=== PATIENT | female | born 1980 | race Hispanic/Latino ===

== ENCOUNTER 2016-10-28 08:43 | Emergency (ER) | payer MEDICAID ==
[~2016-10-28 08:43] MED LIST: AMLO10TA3 PO; ATEN25TA PO; CALC667T5 PO; CINA90TA PO; FERR-83 PO; PANT40TA3 PO
[2016-10-28 08:45] VITALS: BP 131/85; PULSE 62; RESP 20; O2SAT 100
[2016-10-28 09:50] LABS: BASOPHILS % (AUTO) 0.6 % (0-3); EOSINOPHILS % (AUTO) 0.8 % (0-5); MONOCYTES % (AUTO) 6.7 % (4-12); Mean Corpuscular Hemoglobin 30.1 pg (27.0-35.0); NEUTROPHILS % (AUTO) 75.6 % (40-74); Platelet Count 218 bil/L (150-400)
--- NOTE | 2016-10-28 10:23 | ED.REPORT ---
HPI-General Illness Date of Service Oct 28, 2016 ED Provider: Karl Oneill DO Patient is a 36 year old female who presents to the ED complaining of low calcium levels. She gets her calcium level checked regularly because she is on dialysis. Associated symptoms include feeling flushed. She denies numbness, muscle spasms, or any other symptoms. She has had similar symptoms before. She takes calcium supplements and reports she received 3 g of IV calcium this morning following dialysis. Nursing Notes Stated Complaint: CALCIUM LEVEL LOW Chief Complaint: General Complaint Nursing Notes Reviewed: Yes Allergies: Coded Allergies: iron (Verified Allergy, Severe, Anaphylaxis, 10/28/16) PT CURRENTLY TAKING DRUG TAPE (Verified Allergy, Unknown, UNKNOWN, 10/28/16) vancomycin (Verified Allergy, Unknown, UNKNOWN, 10/28/16) Scheduled Amlodipine (Amlodipine) 10 Mg Tablet 10 MG PO DAILY Atenolol (Atenolol) 25 Mg Tablet 25 MG PO DAILY Calcium Acetate (Calcium Acetate) 667 Mg Tablet 3 TAB PO TID Cinacalcet HCl (Sensipar) 90 Mg Tablet 90 MG PO DAILY Ferrous Sulfate (Ferrous Sulfate) 325 Mg Tablet 325 MG PO DAILY Pantoprazole DR (Pantoprazole DR) 40 Mg Tablet.dr 40 MG PO DAILY General Time Seen by MD: 10:20 Chief Complaint Other (Low Calcium) 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 High Past Medical History Kidney failure with dialysis since approximately 2007 Pneumonia Polycystic ovaries hyperparathyroidism Reports: Hypertension Past Surgical History Hernia repair Parathyroid gland removal Fistula Family History Renal disease Smoking History Former Smoker Social History Patient has dialysis Friday, Friday and Friday Alcohol Use: Denies alcohol use Drug Use: Denies drug use Other Social History: Good social support Ambulatory Status Independent Review of Systems + flushed Full Review of Systems Constitutional: Denies: Chills, Fever Neurologic: Denies: Numbness Complete sys rev & neg: except as marked. Physical Exam Vital Signs Vital Signs Date Time Temp Pulse Resp B/P Pulse Ox O2 Delivery O2 Flow Rate FiO2 10/28/16 11:20 59 18 123/72 97 Room Air 10/28/16 08:45 36.3 62 20 131/85 100 Room Air Initial VS: Reviewed Head / Eyes: Atraumatic, Normocephalic Neck: Full range of motion Respiratory: No respiratory distress Extremities: No swelling Skin: Warm, Dry Neurologic: Alert, Oriented, Nonfocal Psychiatric: Mood/affect normal, Behavior normal, Normal thought content General/Constitutional: Awake, Alert, Well developed No clonus. Interpretation & Diagnostics Lab Results Interpretation Result Diagram: 10/28/16 0908 10/28/16 0908 Test 10/28/16 09:08 White Blood Count 5.0th/mm3 (3.8-10.1) Red Blood Count 4.22mil/mm3 (3.90-5.20) Hemoglobin 12.7g/dL (12.0-15.6) Hematocrit 38.0% (35.0-46.0) Mean Corpuscular Volume 90.0fL (81-100) Mean Corpuscular Hemoglobin 30.1pg (27.0-35.0) Mean Corpuscular Hemoglobin Concent 33.4% (32.0-37.0) Red Cell Distribution Width 14.0% (12.3-15.4) Platelet Count 218bil/L (150-400) Neutrophils (%) (Auto) 75.6% (40-74) Lymphocytes (%) (Auto) 16.1% (14-46) Monocytes (%) (Auto) 6.7% (4-12) Eosinophils (%) (Auto) 0.8% (0-5) Basophils (%) (Auto) 0.6% (0-3) Sodium Level 134mEq/L (134-144) Potassium Level 3.8mEq/L (3.5-5.2) Chloride Level 89mEq/L (97-108) Carbon Dioxide Level 31mmol/L (18-29) Blood Urea Nitrogen 46mg/dL (6-20) Creatinine 5.92mg/dL (0.57-1.00) Estimat Glomerular Filtration Rate 11mL/min (>59) Glucose Level 147mg/dL (60-99) Calcium Level 7.9mg/dL (8.5-10.1) Total Bilirubin 0.3mg/dL (0.0-1.2) Aspartate Amino Transf (AST/SGOT) 17U/L (0-50) Alanine Aminotransferase (ALT/SGPT) 7U/L (0-32) Alkaline Phosphatase 252U/L (25-150) Total Protein 8.4g/dL (6.4-8.4) Albumin 4.2g/dL (3.4-5.0) Hold Shook Top Tube Received (Received) Re-Eval/Medical Decision Med Decision/Clinical Course Reportedly patient had more profound hypocalcemia prior to arrival but now she is asymptomatic. The case is discussed with nephrology who agrees that patient is stable for discharge. Once again reinforced close follow-up and proper medication dosing. Return precautions given. Time of Eval: 11:06 Re-Evaluation/Progress Note: Discussed plan for discharge with close follow up. Patient understands and agrees with plan. All questions addressed at this time. Consultation : Referral / Consult Name: Anjum Kaplan MD Consulted With: Nephrology Call Returned at: 10:46 Swatch Folder: Agrees with eval, Agrees with plan Note: Discussed patient's case with captain fire prevention bureau interior design project manager for Dr. High. He suggests discharge with followup and increasing her dose of calcium. Counseled Regarding: Diagnosis, Lab results, Need for follow-up, When/why to return to ED Discharge & Departure Primary Impression: Hypocalcemia Disposition: Home Discharge Condition All VS Reviewed: Yes Condition: Stable Additional Instructions: Be sure to take your calcium 80 mL 4 times a day. Follow-up with your interior design project manager as planned. Return to the ER as needed for worsening symptoms. Referrals: Eliz Brown PA-C (PCP) Scribe Attestation Portions of this note were transcribed by Sly Garcia. I, Dr. Oneill personally performed the history, physical exam and medical decision-making; I reviewed and confirmed the accuracy of the information in the transcribed note. Signed by: Sly Garcia 10/28/16, 1130 copies to: Eliz Brown PA-C, Timothy S DO Oct 28, 2016 10:23 SLY GRACIA Oct 28, 2016 10:24
[2016-10-28 11:20] VITALS: BP 123/72; PULSE 59; RESP 18; O2SAT 97
== END 2016-10-28 11:19 | disposition home or self-care (01) ==
LOC: SED 08:43
DX: E83.51 Hypocalcemia (principal); I12.9 Hypertensive chronic kidney disease with stage 1 through stage 4 chronic kidney disease, or unspecified chronic kidney disease; N19 Unspecified kidney failure; Z99.2 Dependence on renal dialysis; Z87.891 Personal history of nicotine dependence; Z88.1 Allergy status to other antibiotic agents; Z88.8 Allergy status to other drugs, medicaments and biological substances

== ENCOUNTER 2017-03-07 00:24 | Emergency (ER) | payer MEDICAID ==
[~2017-03-07] VITALS: Ht 148.6 cm; Wt 56.4 kg
[2017-03-07 00:30] VITALS: BP 140/74; PULSE 89; RESP 16; O2SAT 98
[2017-03-07 00:57] LABS: BASOPHILS % (AUTO) 0.3 % (0-3); EOSINOPHILS % (AUTO) 3.2 % (0-5); MONOCYTES % (AUTO) 11.5 % (4-12); Mean Corpuscular Hemoglobin 30.6 pg (27.0-35.0); Mean Corpuscular Volume 91.3 fL (81-100); NEUTROPHILS % (AUTO) 54.8 % (40-74); Platelet Count 204 bil/L (150-400)
--- NOTE | 2017-03-07 01:41 | ED.REPORT ---
HPI-Chest Pain Under 40 Date of Service March 07, 2017 ED Provider: Domenico Sandoval MD A 36 year old female with a history of renal failure on dialysis, hypertension and pneumonia presents to the ED complaining of chest pain. The pt woke one hour ago with chest pressure, shortness of breath and a headache that lasted for ten minutes, though she denies diaphoresis, productive cough, or shortness of breath with exertion. The pt has never experienced similar symptoms before. She was last dialyzed today and has been experiencing some minimal heartburn recently. Nursing Notes Stated Complaint: COUGH Chief Complaint: Chest Pain Nursing Notes Reviewed: Yes Allergies: Coded Allergies: iron (Verified Allergy, Severe, Anaphylaxis, 03/07/17) PT CURRENTLY TAKING DRUG TAPE (Verified Allergy, Unknown, UNKNOWN, 03/07/17) vancomycin (Verified Allergy, Unknown, UNKNOWN, 03/07/17) Scheduled Amlodipine (Amlodipine) 10 Mg Tablet 10 MG PO DAILY Atenolol (Atenolol) 25 Mg Tablet 25 MG PO DAILY Calcium Acetate (Calcium Acetate) 667 Mg Tablet 3 TAB PO TID Cinacalcet HCl (Sensipar) 90 Mg Tablet 90 MG PO DAILY Ferrous Sulfate (Ferrous Sulfate) 325 Mg Tablet 325 MG PO DAILY Pantoprazole DR (Pantoprazole DR) 40 Mg Tablet.dr 40 MG PO DAILY General Time Seen by MD: 00:54 Chief Complaint Chest pain Hx Obtained From: Patient Arrived By: Walk-in Sudden in Onset?: Yes Onset Occurred: 1 - 4 hours ago Symptom Duration: 1 - 15 minutes Recent Healthcare: Recent doctor visit, Recent hospitalization Similar Sx Previous: No Past Medical History Past Medical History Notes: Business Communications Instructor is Dr. High Past Medical History Kidney failure with dialysis since approximately 2007 Pneumonia Polycystic ovaries hyperparathyroidism Reports: Hypertension Past Surgical History Hernia repair Parathyroid gland removal Fistula Family History Renal disease Smoking History Former Smoker Social History Patient has dialysis Friday, Friday and Friday Alcohol Use: Denies alcohol use Drug Use: Denies drug use Other Social History: Good social support Ambulatory Status Independent Review of Systems Respiratory: Reports: Non-productive cough, Shortness of breath, Denies: Prod cough, clear Cardiovascular: Reports: Chest pain GI: Denies: Nausea, Vomiting Skin: Denies Diaphoresis, Denies Rash Neurologic: Reports: Headache Complete sys rev & neg: except as marked. Physical Exam Initial Vital Signs Vital Signs (First) Date Time Temp Pulse Resp B/P Pulse Ox O2 Delivery O2 Flow Rate FiO2 03/07/17 00:30 36.3 89 16 140/74 98 Room Air Initial VS: Reviewed General/Constitutional: Awake, Alert Respiratory / Chest: Atraumatic, Breath sounds NL, Breath sounds = bilat, No respiratory distress, No rales Cardiovascular: Heart rate NL, Regular rhythm, Heart sounds NL no peripheral edema Neck: Atraumatic, Supple, Full range of motion Abdomen: Atraumatic, Soft, Non-tender Back: Atraumatic, Full range of motion Lower Extremity / Pelvis / MS: Atraumatic, Full range of motion Skin: Atraumatic, Color NL, No rash, Warm, Dry Neurologic: Oriented X3, Speech NL, No motor deficits, No sensory deficits Psychiatric: Affect NL, Mood NL Head / Eyes: Atraumatic, Normocephalic, PERRL, EOMI ENT: Atraumatic, Airway patent, Mucous membranes moist Upper Extremity / MS: Atraumatic, Full range of motion Interpretation & Diagnostics Lab Results Interpretation Result Diagram: 03/07/17 0050 03/07/17 0050 Test 03/07/17 00:50 03/07/17 03:30 White Blood Count 6.3th/mm3 (3.8-10.1) Red Blood Count 3.56mil/mm3 (3.90-5.20) Hemoglobin 10.9g/dL (12.0-15.6) Hematocrit 32.5% (35.0-46.0) Mean Corpuscular Volume 91.3fL (81-100) Mean Corpuscular Hemoglobin 30.6pg (27.0-35.0) Mean Corpuscular Hemoglobin Concent 33.5% (32.0-37.0) Red Cell Distribution Width 12.9% (12.3-15.4) Platelet Count 204bil/L (150-400) Neutrophils (%) (Auto) 54.8% (40-74) Lymphocytes (%) (Auto) 30.0% (14-46) Monocytes (%) (Auto) 11.5% (4-12) Eosinophils (%) (Auto) 3.2% (0-5) Basophils (%) (Auto) 0.3% (0-3) Sodium Level 135mEq/L (134-144) Potassium Level 4.9mEq/L (3.5-5.2) Chloride Level 84mEq/L (97-108) Carbon Dioxide Level 28mmol/L (18-29) Blood Urea Nitrogen 59mg/dL (6-20) Creatinine 9.91mg/dL (0.57-1.00) Estimat Glomerular Filtration Rate 6mL/min (>59) Glucose Level 114mg/dL (60-99) Calcium Level 9.4mg/dL (8.5-10.1) Magnesium Level 2.6mg/dL (1.6-2.6) Total Bilirubin 0.2mg/dL (0.0-1.2) Aspartate Amino Transf (AST/SGOT) 16U/L (0-50) Alanine Aminotransferase (ALT/SGPT) 10U/L (0-32) Alkaline Phosphatase 59U/L (25-150) Total Protein 7.5g/dL (6.4-8.4) Albumin 4.3g/dL (3.4-5.0) Troponin T 0.010ug/L (0.0-0.011) ECG Interpretation ECG Interpretation: normal sinus rhythm with a rate of 78 incomplete RBBB, new compared to previous dated 04/25/2015 nonspecific STT wave changes Time: 00:48 Interpreted by: ED physician ECG Interpretation: normal sinus rhythm with a rate of 72 no change in STT waves Time: 03:03 Interpreted by: ED physician X-Ray Chest Interpretation Chest Xray Interpretation: cardiomegaly and fluid overload no infiltrate Interpretation / Wet Read by: Wet read ED physician Re-Eval/Medical Decision Med Decision/Clinical Course 36-year-old presents with a brief episode of chest pain without any associated cardiovascular symptoms. She has a history of heartburn and is on Protonix. She acknowledges heartburn additionally despite her therapy. Enzymes are negative 2 and EKG is nonacute. She is discharged in stable condition for follow-up with PCP. Continue Protonix. Stress testing needs to be accomplished ultimately. Source of Hx: Old records Re-Evaluation/Progress : Time of Eval: 04:39 Patient Status: Condition improved Re-Evaluation/Progress Note: Pt rechecked, who is feeling well. The diagnosis and plan for discharge are discussed. The pt understands and agrees with the plan. All questions are addressed at this time. Counseled Regarding: Diagnosis, Lab results, Need for follow-up, When/why to return to ED Discharge & Departure Primary Impression: Non-cardiac chest pain Additional Impression: Chronic renal failure Disposition: Home Discharge Condition All VS Reviewed: Yes Condition: Stable Patient Instructions: Chest Pain (ED), Esophageal Spasm (ED) Additional Instructions: We do not find any evidence of cardiac trouble associated with this pain. I suspect it was esophageal spasm and not angina. Continue pantoprazole one tablet daily. Follow-up with your doctor in the office. Keep your dialysis appointments as scheduled. Return promptly if you become short of breath, experienced prolonged pain, or any other new symptoms of concern. No encontramos ninguna evidencia de problemas cardacos asociados con juan dolor. Sospecho que era espasmo esofgico y no angina. Continuar con pantoprazol rober tableta al da. Seguimiento con eden mdico en la oficina. Mantenga chayito citas de dilisis segn lo programado. Vuelva pronto si usted tiene dificultad para respirar, dolor prolongado experimentado, o cualquier otro nuevo sntomas de preocupacin. Referrals: Eliz Brown PA-C (PCP) Scribe Attestation Portions of this note were transcribed by Amol Carroll. I, Dr. Sandoval personally performed the history, physical exam and medical decision-making; I reviewed and confirmed the accuracy of the information in the transcribed note. Signed by: Andres Diaz, 03/07/17 and 7249. copies to: Eliz Brown PA-C, Christopher W MD March 07, 2017 01:41 AMOL CARROLL March 07, 2017 01:56
[2017-03-07 01:46] LABS: Magnesium 2.6 mg/dL (1.6-2.6); TROPONIN T 0.01 ug/L (0.0-0.011)
[2017-03-07 04:00] VITALS: PULSE 87; RESP 16; O2SAT 94
[2017-03-07] MEDS ORDERED: Pantoprazole 4 mg/mL 10 mL Inj IVPUSH ONE (04:20)
[2017-03-07 04:48] VITALS: BP 138/69; PULSE 78; RESP 16; O2SAT 97
--- NOTE | 2017-03-07 08:13 | DRSVH ---
PROCEDURE: X-RAY CHEST, TWO VIEWS ([id number]) INDICATIONS: shortness of breath , chest pain TECHNIQUE: 2 views of the chest were acquired. COMPARISON: [facility], , CHEST 2VW, 03/13/2015, 3:27. FINDINGS: Surgical changes and devices: None. Lungs and pleura: No pleural effusions or pneumothorax. Diffuse interstitial opacities are grossly u nchanged no definite focal consolidation. Mediastinum: Mediastinal contours are normal. Heart size is normal. Bones and chest wall: No suspicious bony abnormalities. Soft tissues appear unremarkable. IMPRESSION: No acute disease. Severe interstitial changes, with stable appearance since 03/13/15. Dictated by: Andrew Harkins M.D. on 03/07/2017 at 8:11 Approved by: Andrew Harkins M.D. on 03/07/2017 at 8:12
== END 2017-03-07 04:49 | disposition home or self-care (01) ==
LOC: SED 00:24
DX: R07.89 Other chest pain (principal); N18.9 Chronic kidney disease, unspecified; R51 Headache; Z99.2 Dependence on renal dialysis; I12.9 Hypertensive chronic kidney disease with stage 1 through stage 4 chronic kidney disease, or unspecified chronic kidney disease; E21.3 Hyperparathyroidism, unspecified; Z87.891 Personal history of nicotine dependence; Z88.1 Allergy status to other antibiotic agents; Z88.8 Allergy status to other drugs, medicaments and biological substances

== ENCOUNTER 2017-04-14 02:46 | Observation (INO) | payer MEDICAID ==
[2017-04-14] VITALS (9 sets, daily range): BP systolic 143–212; BP diastolic 65–132; PULSE 56–66; RESP 12–24; O2SAT 93–100
[~2017-04-14] VITALS: Ht 142.2 cm; Wt 54.4 kg
[2017-04-14] MEDS ORDERED: HYDROmorphone 0.5 mg/0.5 mL iSecure Syringe IVPUSH PRN (03:15)
[2017-04-14 03:35] LABS: BASOPHILS % (AUTO) 0.3 % (0-3); EOSINOPHILS % (AUTO) 1.9 % (0-5); MONOCYTES % (AUTO) 11.2 % (4-12); Mean Corpuscular Hemoglobin 30.9 pg (27.0-35.0); Mean Corpuscular Volume 92.6 fL (81-100); NEUTROPHILS % (AUTO) 52.1 % (40-74); Platelet Count 166 bil/L (150-400)
[2017-04-14 04:07] LABS: TROPONIN T 0.01 ug/L (0.0-0.011)
--- NOTE | 2017-04-14 04:19 | ED.REPORT ---
HPI-General Illness Date of Service Apr 14, 2017 ED Provider: Isaac Helton MD 36 y/o female with a hx of renal failure on dialysis, hypertension and pneumonia presents to the ED complaining of "bone pain", onset an hour ago. The pt states, through an clinical information systems director, she has been in pain for the last two days but it got significantly worse today. She denies fever and taking any pain medications. The pt has never had similar sx before. She believes she may have high phosphorus level. Nursing Notes Stated Complaint: ABDOMINAL PAIN Chief Complaint: Chest Pain Nursing Notes Reviewed: Yes Allergies: Coded Allergies: iron (Verified Allergy, Severe, Anaphylaxis, 04/14/17) PT CURRENTLY TAKING DRUG TAPE (Verified Allergy, Unknown, UNKNOWN, 04/14/17) vancomycin (Verified Allergy, Unknown, UNKNOWN, 04/14/17) Scheduled Amlodipine (Amlodipine) 10 Mg Tablet 10 MG PO DAILY Atenolol (Atenolol) 25 Mg Tablet 25 MG PO DAILY Calcium Acetate (Calcium Acetate) 667 Mg Tablet 3 TAB PO TID Cinacalcet HCl (Sensipar) 90 Mg Tablet 90 MG PO DAILY Ferrous Sulfate (Ferrous Sulfate) 325 Mg Tablet 325 MG PO DAILY Pantoprazole DR (Pantoprazole DR) 40 Mg Tablet.dr 40 MG PO DAILY General Time Seen by MD: 02:59 Chief Complaint Other (bone pain) Hx Obtained From: 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 Physical Exam Vital Signs Vital Signs Date Time Temp Pulse Resp B/P Pulse Ox O2 Delivery O2 Flow Rate FiO2 04/14/17 04:18 61 12 174/65 93 Room Air 04/14/17 02:56 36.7 59 18 212/132 100 Room Air Initial VS: Reviewed, Vital signs abnormal Head / Eyes: Atraumatic, Normocephalic Neck: Supple, Non-tender, Full range of motion Respiratory: No respiratory distress Cardiovascular: Regular rate & rhythm Extremities: Vascular intact, Neuro intact, No swelling Skin: Warm, Dry, No cyanosis Neurologic: Alert, Oriented, Nonfocal General/Constitutional: Awake, Alert Distress / Hydration: Positive: Distress moderate Pt is pacing and complaining of back pain Interpretation & Diagnostics Lab Results Interpretation Result Diagram: 04/14/17 0326 04/14/17 0326 Test 04/14/17 03:26 White Blood Count 7.8th/mm3 (3.8-10.1) Red Blood Count 3.76mil/mm3 (3.90-5.20) Hemoglobin 11.6g/dL (12.0-15.6) Hematocrit 34.8% (35.0-46.0) Mean Corpuscular Volume 92.6fL (81-100) Mean Corpuscular Hemoglobin 30.9pg (27.0-35.0) Mean Corpuscular Hemoglobin Concent 33.3% (32.0-37.0) Red Cell Distribution Width 12.4% (12.3-15.4) Platelet Count 166bil/L (150-400) Neutrophils (%) (Auto) 52.1% (40-74) Lymphocytes (%) (Auto) 34.4% (14-46) Monocytes (%) (Auto) 11.2% (4-12) Eosinophils (%) (Auto) 1.9% (0-5) Basophils (%) (Auto) 0.3% (0-3) Sodium Level 137mEq/L (134-144) Potassium Level 5.6mEq/L (3.5-5.2) Chloride Level 87mEq/L (97-108) Carbon Dioxide Level 23mmol/L (18-29) Blood Urea Nitrogen 90mg/dL (6-20) Creatinine 14.52mg/dL (0.57-1.00) Estimat Glomerular Filtration Rate 4mL/min (>59) Glucose Level 115mg/dL (60-99) Calcium Level 15.8mg/dL (8.5-10.1) Phosphorus Level 7.5mg/dL (2.5-4.9) Magnesium Level 3.0mg/dL (1.6-2.6) Total Bilirubin 0.4mg/dL (0.0-1.2) Aspartate Amino Transf (AST/SGOT) 27U/L (0-50) Alanine Aminotransferase (ALT/SGPT) 28U/L (0-32) Alkaline Phosphatase 63U/L (25-150) Troponin T 0.010ug/L (0.0-0.011) Total Protein 7.4g/dL (6.4-8.4) Albumin 4.1g/dL (3.4-5.0) Hold Shook Top Tube Received (Received) Lab Results Interpretation: Chronic kidney injury, hypercalcemia, hyperphosphatemia, hypermagnesemia, hyperkalemia ECG Interpretation ECG Interpretation: Normal sinus rhythm. Rate 60. Probable LVH with secondary repol abdnrm Anterior ST elevation, probably due to LVH Time: 02:57 Interpreted by: ED physician X-Ray Chest Interpretation Chest Xray Interpretation: Result: Normal View: Portable, 1 view Interpretation / Wet Read by: Wet read ED physician Re-Eval/Medical Decision Med Decision/Clinical Course 36-year-old who presents with bone pain. She is found to have severe hyperkalemia and hyperphosphatemia. Her case was discussed with Dr. Fatima and Dr. Phan. She will be admitted to the hospitalist service and will receive urgent dialysis this morning. Source of Hx: Old records Consultation #1: Referral / Consult Name: Jesus Turner MD Consulted With: Nephrology Call Returned at: 04:39 Launching Pad Mechanic: Will see patient, Agrees with eval Consultation #2: Referral / Consult Name: Dianne Phan DO Consulted With: Hospitalist Call Returned at: 05:12 Launching Pad Mechanic: Will see patient, Agrees with eval, Agrees with plan, Accepts admit Counseled Regarding: Diagnosis, Lab results, Need for admission Discharge & Departure Primary Impression: Hypokalemia Additional Impressions: Hyperphosphatemia Hypermagnesemia Dialysis patient Disposition: ADMITTED TO HOSPITAL Discharge Condition All VS Reviewed: Yes Referrals: [facility] (PCP) Scribe Attestation Portions of this note were transcribed by Maulik Casanova. Dr.Leibrand Sophia, personally performed the history, physical exam and medical decision- making;I reviewed and confirmed the accuracy of the information in the transcribed note. Signed by Andres Conte. 04/14/17 05:36 copies to: [facility] Isaac Helton MD Apr 14, 2017 04:19 Maulik Casanova Apr 14, 2017 04:33
[2017-04-14] MEDS ORDERED: Ondansetron 2 mg/mL 2 mL Inj IVPUSH PRN ×2 (06:30→17:05)
[2017-04-14] MEDS ORDERED: Alum-Mag Hydrox-Simeth 30 mL Suspension PO PRN ×2 (06:30→17:05)
[2017-04-14] MEDS: Dextrose 5% 0.45% NaCl 1,000 ML IV SCH ×2 (07:29→17:00)
--- NOTE | 2017-04-14 08:04 | DRSVH ---
PROCEDURE: X-RAY CHEST ONE VIEW, PORTABLE ([id number]) INDICATIONS: 36 year-old female with chest pain. TECHNIQUE: One view of the chest was acquired. COMPARISON: [facility], CT, ABDOMEN W&W/O CONTRAST, 04/25/2015, 18:33. [facility], CR, XR CHEST 2VW, 03/07/2017, 1:00. [facility], CR, CHEST 2VW, 03/13/2015, 3:27. [facility], CR, CHEST 2VW, 03/03/2015, 17:54. FINDINGS: Surgical changes and devices: None. Lungs and pleura: No pleural effusions or pneumothorax. Lungs are clear. Mediastinum: Mediastinal contours appear normal. Heart size is normal given AP technique. Bones and chest wall: No suspicious bony lesions. Patchy bilateral renal calcifications were present . IMPRESSION: 1. No acute cardiopulmonary disease. 2. Patchy bilateral renal cyst wall calcifications in the setting of autosomal dominant polycystic ki dney disease, as better seen on comparison CT scan. Dictated by: Darin Danielle M.D. on 04/14/2017 at 8:00 Approved by: Darin Danielle M.D. on 04/14/2017 at 8:02
--- NOTE | 2017-04-14 08:26 | NUR ---
pt arrived to [facility] for DIALYSIS at 0815 via bed report received from VENESSA CHERY ([facility]) tele night monitor informed of temp room location insole coverer at bedside Addendum: 04/14/17 at 1310 by MARIPOSA MCKEON RN pt returned to [facility] post DIALYSIS tele night monitor informed of return to unit see insole coverer note, intervention, and/or graphic flow for treatment details
--- NOTE | 2017-04-14 12:11 | NUR ---
Dialysis note: 3 hr tx Net UF 2000 right UA fistula, 2-16g needles per clinic orders BF 250 per clinic orders, increased to [address] romero tolerated tx well. RN held sites x 5 min. secured with gauze and tape. Pt returned to floor stable. Report given to primary RN Kalina Please see DTR for complete record of VS
[2017-04-14] MEDS ORDERED: CALC500T9 PO (13:34)
[2017-04-14] MEDS ORDERED: SEVE800T7 PO (13:34)
[2017-04-14] MEDS ORDERED: CINA90TA PO (13:34)
[2017-04-14] MEDS ORDERED: FERR-83 PO (13:34)
[2017-04-14] MEDS ORDERED: HYDR-3939 PO (13:34)
--- NOTE | 2017-04-14 15:40 | NUR ---
Social Work-screening: Data:EMR Reviewed. Pt is a 36 y/o female who was admitted on 04/14/17 for hypermag per H&P. Pt's insurance is [facility] and PCP is [facility]. EMR Reviewed. Pt resides at home with family where she remains independent with ADLs. Pt goes to dialysis M/W/F. Pt has been up independent at baseline. No discharge needs identified. SW will continue to follow if needs arise. Assessment:pt who is independent at baseline. Plan:Pt to discharge home when medically stable via POV. No discharge needs identified. SW will continue to follow if needs arise. YANY Pierce
[2017-04-14] MEDS ORDERED: Polyethylene Glycol (PEG) 17 Gm Powder PO PRN (17:05)
--- NOTE | 2017-04-14 17:20 | CONS ---
[address] [address] CONSULTATION REPORT PATIENT: BRYAN RODARTE : 1980 MR#: [id number] ADMIT: 04/14/2017 JOB ID: [id number] DATE OF SERVICE: 04/14/2017 REQUESTING PHYSICIAN: Moisés Davenport MD. REASON FOR CONSULTATION: Management of end-stage renal disease and electrolyte disturbance. CHIEF COMPLAINT: Bone pain. HISTORY OF PRESENT ILLNESS: This is a 76-year-old, lady with significant past medical history of end-stage renal disease on hemodialysis every Friday, Friday, and Friday. Hyperparathyroidism, status post parathyroidectomy with reimplantation in 2012. The patient has had recurrent secondary hyperparathyroidism. She underwent another excision of hyperplastic parathyroid implants located at the right sternocleidomastoid muscle in September 2016. Patient came to the hospital today with complaints of bone pain and body ache. She is the patient of Dr. Sarah High and Dr. Kaplan. She is dialyzed every Friday, Friday, and Friday via AV fistula at the [facility]. According to the patient, she was started on Tums 8 tablets three times a day to take with meals. Of note, after the 2nd parathyroidectomy, her calcium was noted to below. According to our record in our dialysis unit, her previous calcium level was 7.2 on March 19, 2017. Her last PTH was 89 in January 2017. The patient was told that her phosphorus has not been controlled. History was obtained via conference interpreter. Upon arrival, her initial blood pressure was 112/132. BMP showed a calcium of 15.8, phosphorus 7.5. Renal service was consulted to resume dialysis while she is hospitalized. PAST MEDICAL HISTORY: 1. End-stage renal disease on hemodialysis every Friday, Friday, and Friday. 2. 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 3. Status post excision of hyperplastic parathyroid implants in September 2016. 4. Hypertension with hypertensive nephrosclerosis. 5. Renal osteodystrophy. PAST SURGICAL HISTORY: 1. Status post parathyroidectomy with reimplantation in 2012. 2. Status post excision of hyperplastic parathyroid implant in September 2016. 3. AV fistula creation. ALLERGIES: 1. IRON. 2. VANCOMYCIN. 3. TAPE. SOCIAL HISTORY: Denies current use of alcohol, tobacco, or illicit drugs. FAMILY HISTORY: Noncontributory. MEDICATIONS: The patient reported that she takes Tums 8 tablets t.i.d. with meals. She used to take Renvela as a phosphate binder and it was stopped after the 2nd excision of parathyroid gland. REVIEW OF SYSTEMS: Constitutional: No fever, no chills. HEENT: No headaches. No blurred vision. Cardiovascular: No chest pain. No shortness of breath. Pulmonary: No cough. No hemoptysis. GI: No nausea, vomiting, or diarrhea. : No dysuria, no hematuria. Hematology: No acute bleeding. No bruises. Skin: No rashes. No excoriation. Endocrine: No polydipsia, polyuria. PHYSICAL EXAMINATION: Vitals: Temperature 36.7, pulse 59, respiratory rate 18, blood pressure 147/65. General appearance: Awake, alert, oriented x3. No acute distress, currently being on hemodialysis stable. HEENT: No pallor. No jaundice. No JVD. No lymphadenopathy. No thyroid enlargement. Injected conjunctivae noted bilaterally. Atraumatic. PERRLA. Heart: Regular rhythm. Normal S1, S2. No murmurs, rubs, or gallops. Lungs: Clear to auscultation bilaterally. No wheezing. No rhonchi. Abdomen soft, active bowel sounds. Nontender, nondistended. No hepatosplenomegaly. Extremities: No edema, cyanosis or clubbing of fingers. Right AV fistula with good thrill and bruit. LABORATORY: Sodium 137, potassium 5.6, chloride 87, bicarb 23, BUN 90, creatinine 14.52, glucose 115, calcium of 15.8, phosphorus 7.5, magnesium 3.0. ASSESSMENT: 1. Hypercalcemia secondary to overdose of calcium carbonate. 2. Tertiary hyperparathyroidism status post parathyroidectomy and reimplantation and excision of hyperplastic parathyroid gland again in September 2016. 3. Hyperphosphatemia. 4. Hypertension with hypertensive nephrosclerosis. PLAN: The patient will resume hemodialysis today. We will continue her hemod[facility] Her usual prescription includes 3 hours of dialysis, dialysate flow 500. Blood flow 250. 36 temperature, 2 potassium bath, 2.5 calcium, 40 bicarb bath. 137 sodium bath, heparin 1000 units bolus, no hourly drip. Will try to increase blood flow rate up to 300-350 cc/minute. I will repeat her BMP 4 hours after hemodialysis. We will repeat PTH. Hold calcium-containing phosphate binders for now. Will start patient on Renvela 16 mg t.i.d. We will repeat her renal panel in the morning. We will decide if she will need the extra dialysis in the morning depending upon her repeat renal panel. Thank you, Dr. Davenport, for allowing me to participate in the care of your patient. We will monitor along with you.
--- NOTE | 2017-04-14 17:20 | PCM.HPMED ---
Subjective Date of Service Apr 14, 2017 Primary Provider: Admitting Physician: Moisés Davenport Primary Care Physician: [facility] Attending Physician: Moisés Davenport Chief Complaint: generalized bone pain History of Present Illness: 36-year-old Cymro speaking only female with history of end-stage renal disease on hemodialysis and parathyroidectomy with reimplantation and subsequent recurrent secondary hyperparathyroidism post excision of hyperplastic parathyroid implants in 2016 presents with acute onset of severe generalized bone pain that began last night. She otherwise denies any other new associated symptoms. She gets her HD on Friday, Fri, and Fridays. Review of Systems: Constitutional: Negative, except as otherwise mentioned in the history above. Ophthalmologic: Negative, except as otherwise mentioned in the history above. Cardiovascular: Negative, except as otherwise mentioned in the history above. Respiratory: Negative, except as otherwise mentioned in the history above. Gastrointestinal: Negative, except as otherwise mentioned in the history above. Genitourinary: Negative, except as otherwise mentioned in the history above. Musculoskeletal: Negative, except as otherwise mentioned in the history above. Neurological: Negative, except as otherwise mentioned in the history above. Psychiatric: Negative, except as otherwise mentioned in the history above. Hematologic/Lymphatic: Negative, except as otherwise mentioned in the history above. Allergic/Immunologic: Negative, except as otherwise mentioned in the history above. Allergies Coded Allergies: iron (Verified Allergy, Severe, Anaphylaxis, 04/14/17) PT CURRENTLY TAKING DRUG TAPE (Verified Allergy, Unknown, UNKNOWN, 04/14/17) vancomycin (Verified Allergy, Unknown, UNKNOWN, 04/14/17) Home Medications Amlodipine (Amlodipine) 10 Mg Tablet 10 MG PO DAILY Atenolol (Atenolol) 25 Mg Tablet 25 MG PO DAILY Calcium Acetate (Calcium Acetate) 667 Mg Tablet 3 TAB PO TID Cinacalcet HCl (Sensipar) 90 Mg Tablet 90 MG PO DAILY Ferrous Sulfate (Ferrous Sulfate) 325 Mg Tablet 325 MG PO DAILY Pantoprazole DR (Pantoprazole DR) 40 Mg Tablet.dr 40 MG PO DAILY Exam Vital Signs & I/O Vital Sign- Last 8 Hours Date Time Temp Pulse Resp B/P Pulse Ox O2 Delivery O2 Flow Rate FiO2 04/14/17 14:39 36.9 66 18 158/78 99 Room Air Lab & Micro Results Laboratory Tests Test 04/14/17 03:26 04/14/17 12:45 04/14/17 16:29 White Blood Count 7.8th/mm3 (3.8-10.1) Red Blood Count 3.76mil/mm3 (3.90-5.20) Hemoglobin 11.6g/dL (12.0-15.6) Hematocrit 34.8% (35.0-46.0) Mean Corpuscular Volume 92.6fL (81-100) Mean Corpuscular Hemoglobin 30.9pg (27.0-35.0) Mean Corpuscular Hemoglobin Concent 33.3% (32.0-37.0) Red Cell Distribution Width 12.4% (12.3-15.4) Platelet Count 166bil/L (150-400) Neutrophils (%) (Auto) 52.1% (40-74) Lymphocytes (%) (Auto) 34.4% (14-46) Monocytes (%) (Auto) 11.2% (4-12) Eosinophils (%) (Auto) 1.9% (0-5) Basophils (%) (Auto) 0.3% (0-3) Sodium Level 137mEq/L (134-144) Potassium Level 5.6mEq/L (3.5-5.2) Chloride Level 87mEq/L (97-108) Carbon Dioxide Level 23mmol/L (18-29) Blood Urea Nitrogen 90mg/dL (6-20) Creatinine 14.52mg/dL (0.57-1.00) Estimat Glomerular Filtration Rate 4mL/min (>59) Glucose Level 115mg/dL (60-99) Calcium Level 15.8mg/dL (8.5-10.1) Phosphorus Level 7.5mg/dL (2.5-4.9) Magnesium Level 3.0mg/dL (1.6-2.6) Total Bilirubin 0.4mg/dL (0.0-1.2) Aspartate Amino Transf (AST/SGOT) 27U/L (0-50) Alanine Aminotransferase (ALT/SGPT) 28U/L (0-32) Alkaline Phosphatase 63U/L (25-150) Troponin T 0.010ug/L (0.0-0.011) Total Protein 7.4g/dL (6.4-8.4) Albumin 4.1g/dL (3.4-5.0) Hold Shook Top Tube Received (Received) Parathyroid Hormone (Intact) 14pg/mL (15-65) Result Diagram: 04/14/176 04/14/17 032 PMH 1. Recurrent secondary hyperparathyroidism. 2. End-stage renal disease, currently on hemodialysis on Friday, Friday and Friday. 3. Postoperative hypocalcemia. 4. Hypertension. Surgical History 1. Excision of hyperplastic parathyroid implants, right sternocleidomastoid muscle in September 2016 Family History Mother with kidney failure and as result of complications Social History Hx Alcohol Use: No Hx Substance Use: No Smoking Status: Former Smoker Exam Vital Signs Vital Sign - Last Date Time Temp Pulse Resp B/P Pulse Ox O2 Delivery O2 Flow Rate FiO2 04/14/17 14:39 36.9 66 18 158/78 99 Room Air General: Alert, Oriented X3, Cooperative, No Acute Distress Head: Normal Eyes: PERRLA, EOMI, Scleral Anicteric Nose: Mucous Membr Moist/[place] Mouth: Mucous Membr Moist/[place] Neck: Supple Chest & Lungs: Chest Wall Normal, Clear to auscultation & percussion Cardiovascular: Regular Rate/Rhythm Pulses: NL carotid, radial, femoral, DP, PT Abdomen: Non-tender, Non-distended, Normoactive bowel tones, Soft Extremities: No cyanosis/clubbing/edma bilat Skin: Other (no ulcer/rash) Neurological: Grossly Neurologically Intact, Cranial Nerves 2-12 Intact, Normal Speech Additional Information: Psych: Calm Lab and Diagnostics Result Diagram: 04/14/1732504/14/17325 X-Rays, CTs and MRIs Date of Service: 04/14/17 0254 PROCEDURE: X-RAY CHEST ONE VIEW, PORTABLE ([id number]) IMPRESSION: 1. No acute cardiopulmonary disease. 2. Patchy bilateral renal cyst wall calcifications in the setting of autosomal dominant polycystic kidney disease, as better seen on comparison CT scan. Dictated by: Darin Danielle M.D. on 04/14/2017 at 8:00 Approved by: Darin Danielle M.D. on 04/14/2017 at 8:02 Assessment & Plan 36-year-old female with history of end-stage renal disease on hemodialysis and parathyroidectomy with reimplantation and subsequent recurrent secondary hyperparathyroidism post excision of hyperplastic parathyroid implants in 2016 presents with acute onset of severe generalized bone pain that began the night before. # Acute generalized bone pain, present on admission. - Due to acute hypercalcemia and hyperphosphatemia - Improved after hemodialysis earlier today - Continue supportive care # Acute hypercalcemia, present on admission - She is already s/p excision of hyperplastic parathyroid implants in 2016 - Followup repeat labs after dialysis - Review home meds in more detail - Nephrology consult. Will followup with recs # Acute hyperphosphatemia, present on admission - Further management as noted above # Chronic hypertension. Poorly controlled - Resume home BP Meds - Dialysis as scheduled - Followup with further recs by nephrology # End stage renal disease, chronic. - Further hemodialysis per nephrology consult recs Expected length of hospital stay is greater than 2 midnights and likely 2 days GI Prophylaxis: Not indicated VTE Prophylaxis: Sub-Q Heparin (Unfractionated) Resuscitation Status: CPR: Attempt Resuscitation (discussed and verfied with patient) Time spent 60 min Moisés Davenport Apr 14, 2017 17:20
--- NOTE | 2017-04-14 20:16 | NUR ---
Critical lab Recieved critical lab value of Cr 7.7. Paged night hospitalist the information.
[2017-04-15 00:10] VITALS: BP 151/80; PULSE 61; RESP 20; O2SAT 99
[2017-04-15] MEDS: Heparin 5,000 Unit/mL Inj SUBQ SCH ×2 (00:59→08:39)
--- NOTE | 2017-04-15 03:35 | NUR ---
activity Pt remained in room for the evening with family visiting. Pt alert and oriented x4, indp in the room. Pt remarked that she had a "small amount of pee this evening". No complaints of distress or discomfort. Will continue to monitor.
[2017-04-15 05:40] VITALS: BP 162/85; PULSE 57; RESP 18; O2SAT 98
[2017-04-15 05:56] LABS: BASOPHILS % (AUTO) 0.2 % (0-3); EOSINOPHILS % (AUTO) 5.3 % (0-5); MONOCYTES % (AUTO) 18.3 % (4-12); Mean Corpuscular Hemoglobin 30.8 pg (27.0-35.0); Mean Corpuscular Volume 94.6 fL (81-100); NEUTROPHILS % (AUTO) 39.2 % (40-74); Platelet Count 157 bil/L (150-400)
[2017-04-15 06:13] LABS: Magnesium 2.2 mg/dL (1.6-2.6)
[2017-04-15 08:01] VITALS: BP_SYST 146; BP_SYST 185; BP_DIAS 76; BP_DIAS 95; PULSE 68; PULSE 87; RESP 20; O2SAT 90; O2SAT 98
[2017-04-15 10:16] VITALS: PULSE 71
--- NOTE | 2017-04-15 10:33 | PCM.PNNEPH ---
Subjective Date of Service Apr 15, 2017 Subjective Feeling better, denies bone pain. Ca 11.0, PO4 6.0 Exam Vital Signs Vital Sign - Last Date Time Temp Pulse Resp B/P Pulse Ox O2 Delivery O2 Flow Rate FiO2 04/15/17 10:16 71 04/15/17 08:01 37.1 20 146/76 98 Room Air Intake and Output 04/14/17 04/14/17 04/15/17 Cumulative From/Thru 15:00 23:00 07:00 04/14/17 02:56 - 04/15/17 06:46 Intake Total 475 ml 858 ml 475 ml 1808 ml Output Total 2000 ml 50 ml 0 ml 2050 ml Balance -1525 ml 808 ml 475 ml -242 ml Intake Oral 440 ml 475 ml 915 ml IV Total 475 ml 418 ml 893 ml Output Urine Total 50 ml 0 ml 50 ml Ultrafiltrate 2000 ml 2000 ml # Bowel Movements 0 0 0 Exam General appearance: Awake, alert, oriented x3. No acute distress, currently being on hemodialysis stable. HEENT: No pallor. No jaundice. No JVD. No lymphadenopathy. No thyroid enlargement. Injected conjunctivae noted bilaterally. Atraumatic. PERRLA. Heart: Regular rhythm. Normal S1, S2. No murmurs, rubs, or gallops. Lungs: Clear to auscultation bilaterally. No wheezing. No rhonchi. Abdomen soft, active bowel sounds. Nontender, nondistended. No hepatosplenomegaly. Extremities: No edema, cyanosis or clubbing of fingers. Right AV fistula with good thrill and bruit. Lab and Diagnostics Result Diagram: 04/15/17 0525 04/15/17 0525 X-Rays, CTs and MRIs Date of Service: 04/14/17 0254 PROCEDURE: X-RAY CHEST ONE VIEW, PORTABLE ([id number]) IMPRESSION: 1. No acute cardiopulmonary disease. 2. Patchy bilateral renal cyst wall calcifications in the setting of autosomal dominant polycystic kidney disease, as better seen on comparison CT scan. Dictated by: Darin Danielle M.D. on 04/14/2017 at 8:00 Approved by: Darin Danielle M.D. on 04/14/2017 at 8:02 Plan Impression 1. Hypercalcemia secondary to overdose of calcium carbonate. 2. Tertiary hyperparathyroidism status post parathyroidectomy and reimplantation in 2012 and excision of hyperplastic parathyroid gland in September 2016. 3. Hyperphosphatemia. 4. Hypertension with hypertensive nephrosclerosis. Plan: Extra HD today for 2.5 hr, UF 0.5-1L. Hold CaCO3. Continue Renvela 1600 mg TID with meals. Likely to be d/c'd home after HD today. Next HD in am. Will repeat calcium level prior to HD on Friday at [facility] [place]. Jesus Turner MD Apr 15, 2017 10:33
--- NOTE | 2017-04-15 11:00 | NUR ---
Dialysis Pt to be dialyzed for a short session today. No complains of pain, VSS. Pt taken from [facility] [place] [facility] [place] by this RN and SCHOOL COUNSELOR. Will await call from Antonella for crab picker. Addendum: 04/15/17 at 1424 by JOSÉ SORIA RN Pt returned to [facility] [place] rm [id number]. No complains of pain. 1 Kg of fluid removed. Call light in place, will continue to monitor.
[2017-04-15] MEDS ORDERED: SEVE800T7 PO (15:06)
--- NOTE | 2017-04-15 15:11 | PCM.DIMED ---
Discharge Instructions Date of Service Apr 15, 2017 Dates of Hospitalization Apr 14, 2017 at 05:38 Discharge Diagnosis Discharge Diagnosis # Acute generalized bone pain due to acute hypercalcemia and hyperphosphatemia. Present on admission. Resolved # Acute hypercalcemia secondary to overdose of calcium carbonate. Present on admission. Improved # Acute Hyperphosphatemia. Present on admission. Improved # Tertiary hyperparathyroidism status post parathyroidectomy and reimplantation and excision of hyperplastic parathyroid gland again in September 2016. # History of hypertension with hypertensive nephrosclerosis. # End stage renal disease on hemodialysis. Diet Discharge Diet: Heart Healthy, Renal Diet Activity Discharge Activity: No restrictions Call your provider Call your provider for: Fever or Chills, Shortness of breath, Bleeding, Chest pain, Vomitting Patient Instructions Patient Instructions Seek immediate medical attention if any new or worsening signs or symptoms occur. Follow-up plan 1. Followup with your dialysis as previously scheduled 2. Followup with your roof truss builder in 3-7 days 3. Followup with primary care provider in 1-2 weeks. Follow-up Provider: [facility] Provider: Anjum aKplan MD, Masoud Apr 15, 2017 15:11
--- NOTE | 2017-04-15 15:13 | NUR ---
Social Work-discharge: data:EMR reviewed. Pt is on day 1 of hospitalization for renal per h&P. Pt is medically stable for discharge. Pt resides at home with her family. Pt has been up independent in her room. No discharge needs identified. All updated and agreeable to plan. Assessment:Pt who is independent at baseline. Plan:Pt to discharge home today via POV. No discharge needs identified. All updated and agreeable to plan. YANY Pierce
--- NOTE | 2017-04-15 15:15 | PCM.DC.MED ---
Discharge Summary Date of Service Apr 15, 2017 Dates of Hospitalization Date of Hospital Admission Apr 14, 2017 at 05:38 Date of Discharge: Apr 15, 2017 Providers: Admitting Physician: Moisés Thorpe [facility]ending Physician: Moisés Thorpe Diagnosis at Time of Discharge Diagnosis at Time of Discharge # Acute generalized bone pain due to acute hypercalcemia and hyperphosphatemia. Present on admission. Resolved # Acute hypercalcemia secondary to overdose of calcium carbonate. Present on admission. Improved # Acute Hyperphosphatemia. Present on admission. Improved # Tertiary hyperparathyroidism status post parathyroidectomy and reimplantation and excision of hyperplastic parathyroid gland again in September 2016. # History of hypertension with hypertensive nephrosclerosis. # End stage renal disease on hemodialysis. Consultations 1. Nephrology Procedures XRay, CTs & MRIs Date of Service: 04/14/17 0254 PROCEDURE: X-RAY CHEST ONE VIEW, PORTABLE ([id number]) IMPRESSION: 1. No acute cardiopulmonary disease. 2. Patchy bilateral renal cyst wall calcifications in the setting of autosomal dominant polycystic kidney disease, as better seen on comparison CT scan. Dictated by: Darin Danielle M.D. on 04/14/2017 at 8:00 Approved by: Darin Danielle M.D. on 04/14/2017 at 8:02 Brief History 36-year-old Nepali speaking only female with history of end-stage renal disease on hemodialysis and parathyroidectomy with reimplantation and subsequent recurrent secondary hyperparathyroidism post excision of hyperplastic parathyroid implants in 2015 presents with acute onset of severe generalized bone pain that began last night. She otherwise denies any other new associated symptoms. She gets her HD on Friday, Fri, and Fridays. Hospital Course # Acute generalized bone pain, present on admission. - Due to acute hypercalcemia and hyperphosphatemia - Resolved after HD and improvement of hypercalcemia. # Acute hypercalcemia secondary to overdose of calcium carbonate. Present on admission. - Improved with hemodialysis # Acute hyperphosphatemia, present on admission. improved. - Further management as noted above # Chronic hypertension. Poorly controlled - Resumed home BP Meds - Dialysis as scheduled - Followup with further recs by nephrology as outpatient # End stage renal disease, chronic. - Further hemodialysis per nephrology consult recs - Next HD planned for tomorrow as outpatient Exam Vital Signs (Last) Date Time Temp Pulse Resp B/P Pulse Ox O2 Delivery O2 Flow Rate FiO2 04/15/17 10:16 71 04/15/17 08:01 37.1 20 146/76 98 Room Air Exam General: Alert, Oriented X3, Cooperative, No Acute Distress Head: Normal Eyes: Scleral Anicteric Nose: Mucous Membr Moist/[place] Mouth: Mucous Membr Moist/[place] Neck: Supple Chest & Lungs: Chest Wall Normal, Clear to auscultation bilat Cardiovascular: Regular Rate/Rhythm Pulses: NL carotid, radial, femoral, DP, PT Abdomen: Non-tender, Non-distended, Normoactive bowel tones, Soft Extremities: No cyanosis/clubbing/edema bilat Neurological: Grossly Neurologically Intact, Cranial Nerves 2-12 Intact, Normal Speech Test 04/14/17 03:26 04/14/17 12:45 04/15/17 05:25 Total Bilirubin 0.4mg/dL (0.0-1.2) Aspartate Amino Transf (AST/SGOT) 27U/L (0-50) Alanine Aminotransferase (ALT/SGPT) 28U/L (0-32) Alkaline Phosphatase 63U/L (25-150) Troponin T 0.010ug/L (0.0-0.011) Total Protein 7.4g/dL (6.4-8.4) Hold Shook Top Tube Received (Received) Parathyroid Hormone (Intact) 14pg/mL (15-65) White Blood Count 4.2th/mm3 (3.8-10.1) Red Blood Count 3.67mil/mm3 (3.90-5.20) Hemoglobin 11.3g/dL (12.0-15.6) Hematocrit 34.7% (35.0-46.0) Mean Corpuscular Volume 94.6fL (81-100) Mean Corpuscular Hemoglobin 30.8pg (27.0-35.0) Mean Corpuscular Hemoglobin Concent 32.6% (32.0-37.0) Red Cell Distribution Width 12.6% (12.3-15.4) Platelet Count 157bil/L (150-400) Neutrophils (%) (Auto) 39.2% (40-74) Lymphocytes (%) (Auto) 37.0% (14-46) Monocytes (%) (Auto) 18.3% (4-12) Eosinophils (%) (Auto) 5.3% (0-5) Basophils (%) (Auto) 0.2% (0-3) Sodium Level 138mEq/L (134-144) Potassium Level 5.2mEq/L (3.5-5.2) Chloride Level 94mEq/L (97-108) Carbon Dioxide Level 28mmol/L (18-29) Blood Urea Nitrogen 54mg/dL (6-20) Creatinine 9.66mg/dL (0.57-1.00) Estimat Glomerular Filtration Rate 6mL/min (>59) Glucose Level 100mg/dL (60-99) Calcium Level 11.0mg/dL (8.5-10.1) Phosphorus Level 6.0mg/dL (2.5-4.9) Magnesium Level 2.2mg/dL (1.6-2.6) Albumin 3.8g/dL (3.4-5.0) Discharge Medications Discharge Medications Atenolol (Atenolol) 25 Mg Tablet 25 MG PO DAILY (Reported) Cinacalcet HCl (Sensipar) 90 Mg Tablet 90 MG PO DAILY (Reported) Ferrous Sulfate (Ferrous Sulfate) 325 Mg Tablet 325 MG PO DAILY (Reported) Hydralazine (Hydralazine) 25 Mg Tablet 25 MG PO BID (Reported) Sevelamer Carbonate (Renvela) 800 Mg Tablet 1,600 MG PO TIDWM Prescribed by: MOISÉS THORPE MD Followup Plan Disposition: Home Follow-up plan 1. Followup with your dialysis as previously scheduled 2. Followup with your diesel technician in 3-7 days 3. Followup with primary care provider in 1-2 weeks. Discharge Diet: Heart Healthy, Renal Diet Discharge Activity: No restrictions Patient Instructions Seek immediate medical attention if any new or worsening signs or symptoms occur. Follow-up Provider: [facility] Provider: Anjum Kaplan MD Time spent 35 min copies to: Anjum Kaplan MD; [facility] Moisés Thorpe Apr 15, 2017 15:15
--- NOTE | 2017-04-15 16:30 | NUR ---
Discharge Pt discharged at this time. VSS, no complains of increased pain, SOB or confusion. All belongings gathered and returned to pt. New script given to pt to fill. Discharge packet printed and reviewed. Pt declined offer of wheelchair. [place] [facility] [place] to [place], steady stable gait observed. Pt to be transported home in private vehicle driven by spouse.
== END 2017-04-15 16:49 | disposition home or self-care (01) ==
LOC: SED 02:46 → MPC 05:38 → OBSVTOIN 05:38 → INTOOBSV 05:38
PROVIDERS: ADMIT Internal Medicine; ATTEND Internal Medicine
DX: T47.1X1A Poisoning by other antacids and anti-gastric-secretion drugs, accidental (unintentional), initial encounter (principal); E87.6 Hypokalemia; E83.41 Hypermagnesemia; E21.2 Other hyperparathyroidism; M89.8X9 Other specified disorders of bone, unspecified site; I12.0 Hypertensive chronic kidney disease with stage 5 chronic kidney disease or end stage renal disease; N18.6 End stage renal disease; Z99.2 Dependence on renal dialysis; Z87.891 Personal history of nicotine dependence
CPT/HCPCS: 36415; 71010; 80048; 80053; 80069; 83735; 83970; 84100; 84484; 85025; 90935; 93005; 96374; 99285; G0378; J1170; J1644; J7042